=== PATIENT | female | born 1985 | race Two or more races ===

== ENCOUNTER 2016-09-03 16:53 | Emergency (ER) | payer SELFPAY ==
[2016-09-03 17:50] LABS: BASO % 0.5 % (0.2-1.0); EOS # 0.2 (0.0-0.5); EOS % 1.9 % (0.9-2.9); HEMATOCRIT 37.2 % (37.0-47.0); HEMOGLOBIN 12.4 gm/l (12.0-16.0); IMM NEUT% 0.2 % (0-1); LYMPH # 2.6 (1.0-4.8); LYMPH % 30.3 % (15-45); MEAN CELL VOLUME 86.9 fl (81.0-99.0); MEAN CORPUSCULAR HGB CONC 33.3 g/dl (33.0-37.0); MONO # 0.7 (0.0-0.8); MONO % 8.1 % (4-12); PLATELET COUNT 314 K/mm3 (130-400); RED CELL DISTRIBUTION WIDTH 12.8 % (11.5-14.5)
[2016-09-03 18:08] LABS: ALB/GLOB RATIO 1.3 (>1.0); CALCIUM 9.2 mg/dL (8.6-10.3)
--- NOTE | 2016-09-03 19:53 | US ---
PELVIC COMPLETE, TRANSVAGINAL ECHOGRAPHY: 09/03/2016 6:54 PM CLINICAL HISTORY: Vaginal bleeding. Positive home test. Quantitative beta hCG is less than 1 measured in the emergency department.. Comparison: None STUDY: Transabdominal and transvaginal imaging was performed with multiple grayscale, color-flow and duplex Doppler imaging. FINDINGS: Uterus: Orientation: Anteverted. Size: 8.6 x 4.2 x 4.6 cm Mass: Along the mid left posterior aspect is a probable fibroid measuring 1.5 x 1.2 x 1.4 cm Cervix: Normal. Endometrium: Endometrial thickness measures 7 mm Ovaries: Size: Right measures 2.5 x 1.6 x 3.5 cm; left measures 2.7 x 1.4 x 2.3 cm. Arterial and venous blood flow: right ovary: Present, left ovary: Present Mass: None. Adnexa: Mass: None. Cul-de-sac: No free fluid. IMPRESSION: Uterine fibroid without evidence of intrauterine gestation. No evidence of ectopic . Ultrasound is not sensitive for the detection of with beta hCG less than 1200. Given the history of vaginal bleeding, spontaneous should also be considered. Close clinical and radiographic follow-up with serial ultrasound and beta hCG would be recommended. Findings were called to Dr. Allison at approximately 1949 hours on 09/03/2016.
== END 2016-09-03 20:32 | disposition home or self-care (01) ==
LOC: ED 16:53
DX: N93.9 Abnormal uterine and vaginal bleeding, unspecified (principal); D25.9 Leiomyoma of uterus, unspecified; E11.9 Type 2 diabetes mellitus without complications; Z32.02 Encounter for pregnancy test, result negative